=== PATIENT | female | born 1955 | race Asian ===

== ENCOUNTER 2020-01-25 04:59 | Day surgery (SDC) | payer OTHER, BC ==
[2020-01-24 17:54] VITALS: BMI 25.0
[~2020-01-25 04:59] MED LIST: ACETAMINOPHEN 325 MG TABLET (FP) PO PRN; EPINEPHrine/PF 1 MG/1 ML (1:1,000) AMPULE SQ ONE
[2020-01-25] MEDS ORDERED: CHONDROITIN SU A/HYALUR SOD 1 KIT ONE (07:11)
[2020-01-25] MEDS ORDERED: TETRACAINE 0.5% OPHTH SOLN 2 ML BOTTLE ONE (07:25)
[2020-01-25] MEDS ORDERED: BSS (NA/CA/MG/K) BALANCED SALT SOLUTION OPHTH SOLN 15 ML BOTTLE ONE (07:25)
[2020-01-25] MEDS ORDERED: POVIDONE-IODINE 5% OPHTHALMIC PREP 30 ML SOLUTION ONE (07:25)
[2020-01-25] MEDS ORDERED: LIDOCAINE HCL/PF 1% SDV 5ML VIAL ONE (07:25)
[2020-01-25] MEDS ORDERED: EPINEPHrine/PF 1 MG/1 ML (1:1,000) AMPULE ONE (07:25)
[2020-01-25] MEDS ORDERED: TRYPAN BLUE 0.5 ML DISP.SYRIN ONE (07:28)
[2020-01-25] MEDS: KETOROLAC TROMETHAMINE 0.5% EYE DROP 1 DROP DROPS OP SCH ×3 (07:30→07:50)
[2020-01-25] MEDS: OFLOXACIN 0.3% OPHTHALMIC SOLUTION 5 ML BOTTLE OP SCH ×3 (07:30→07:50)
[2020-01-25] MEDS: TROPICAMIDE 1% OPHTH SOLN 15 ML BOTTLE OP SCH ×3 (07:30→07:50)
[2020-01-25] MEDS: CYCLOPENTOLATE HCL 1% OPHTH SOLN 2 ML BOTTLE OP SCH ×3 (07:30→07:50)
[2020-01-25] MEDS: PHENYLEPHRINE 2.5% OPHTH SOLN 15 ML BOTTLE OP SCH ×2 (07:40→07:50)
[2020-01-25] MEDS ORDERED: TROPICAMIDE 1% OPHTH SOLN 15 ML BOTTLE ONE ×2 (07:44→08:05)
[2020-01-25] MEDS ORDERED: KETOROLAC TROMETHAMINE 0.5% EYE DROP 1 DROP DROPS ONE (07:44)
[2020-01-25] MEDS ORDERED: OFLOXACIN 0.3% OPHTHALMIC SOLUTION 5 ML BOTTLE ONE (07:44)
[2020-01-25] MEDS ORDERED: CYCLOPENTOLATE HCL 1% OPHTH SOLN 2 ML BOTTLE ONE (07:45)
[2020-01-25] MEDS ORDERED: TETRACAINE 0.5% OPHTH SOLN 2 ML BOTTLE OS ONE (09:17)
[2020-01-25] MEDS ORDERED: POVIDONE-IODINE 5% OPHTHALMIC PREP 30 ML SOLUTION OS ONE (09:19)
[2020-01-25] MEDS ORDERED: CHONDROITIN SU A/HYALUR SOD 1 KIT IO ONE (09:25)
[2020-01-25] MEDS ORDERED: BSS (NA/CA/MG/K) BALANCED SALT SOLUTION OPHTH SOLN 15 ML BOTTLE OS ONE (09:25)
[2020-01-25] MEDS ORDERED: LIDOCAINE HCL 1% PRESERVATIVE FREE - 30ML VIAL IO ONE (09:25)
[2020-01-25] MEDS ORDERED: TRYPAN BLUE 0.5 ML DISP.SYRIN IO ONE (09:27)
[2020-01-25] MEDS ORDERED: EPINEPHrine/PF 1 MG/1 ML (1:1,000) AMPULE SQ ONE (09:36)
[2020-01-25] MEDS ORDERED: MIDAZOLAM HCL 2 MG/2 ML SINGLE DOSE VIAL ONE (09:54)
[2020-01-25 12:08] VITALS: BP 150/70; PULSE 70; TEMP 97.8
--- NOTE | 2020-01-25 19:32 | SPEC ---
DATE OF OPERATION: 01/25/2020 OPERATION: Phacoemulsification of left cataract, capsular staining with Trypan blue and posterior chamber intraocular lens implantation, lens used [id number], 21.0 Diopter power, Serial No. [id number]. PREOPERATIVE DIAGNOSIS: Cataract, left eye. POSTOPERATIVE DIAGNOSIS: Cataract, left eye. SURGEON: Cameron Bruno M.D. ANESTHESIA: Topical MAC. COMPLICATIONS: None. PROCEDURE: The patient was brought to the operating room and correctly identified along with the operative site as well as correct intraocular lens estrella. The patient was then prepped and draped in the usual sterile fashion including 5% Betadine solution in the conjunctival sac and an eyelid drape. An eyelid speculum was then placed into the operative eye. The eye was inspected and a poor red reflex was noted. A paracentesis port was created and 0.5 mL of intracameral preservative-free lidocaine 1% was given. Beneath an air bubble, the capsule was then stained with Trypan blue. The Trypan blue was then irrigated from the eye with balanced salt solution (BBS). Viscoelastic was injected to inflate the anterior chamber. A temporal clear corneal wound was created. A continuous circular capsulorrhexis was performed. The nucleus was then hydro-dissected and hydro-delineated was BSS and removed with phacoemulsification via [id number] approach. The remaining cortical material was irrigated and aspirated from the eye. Viscoelastic was injected in the anterior chamber to inflate the capsular bag. The intraocular lens was then injected into the bag. The Viscoelastic was irrigated and aspirated from the eye. All wounds were tested and found to be watertight. No suture was placed. The intraocular lens was noted to be well centered and covered by the anterior capsular border. Topical Vancomycin was given. The eye was patched and shielded. The patient was discharged from the operating room in stable condition. Patricia [id number]
== END 2020-01-25 11:30 | disposition home or self-care (01) ==
LOC: JASU-SURG 04:59
PROVIDERS: ATTEND Ophthalmology
PROC: 08RK3JZ Replacement of Left Lens with Synthetic Substitute, Percutaneous Approach (ICD-10-PCS; principal; 2020-01-25 09:00)
DX: H26.9 Unspecified cataract (principal)
CPT/HCPCS: 82962

== ENCOUNTER 2022-02-05 06:01 | Day surgery (SDC) | payer OTHER, BC ==
[2022-02-04 11:56] VITALS: BMI 27.1
[~2022-02-05 06:01] MED LIST changes: -EPINEPHrine/PF 1 MG/1 ML (1:1,000) AMPULE SQ ONE
[2022-02-05 06:38] VITALS: RESP 16
[2022-02-05] MEDS: CYCLOPENTOLATE HCL 1% OPHTH SOLN 2 ML BOTTLE OP SCH ×3 (06:45→07:13)
[2022-02-05] MEDS: KETOROLAC TROMETHAMINE 0.5% EYE DROP 1 DROP DROPS OP SCH ×3 (06:45→07:28)
[2022-02-05] MEDS: TROPICAMIDE 1% OPHTH SOLN 15 ML BOTTLE OP SCH ×3 (06:45→07:28)
[2022-02-05] MEDS: OFLOXACIN 0.3% OPHTHALMIC SOLUTION 5 ML BOTTLE OP SCH ×2 (06:45→06:52)
[2022-02-05] MEDS: PHENYLEPHRINE 2.5% OPHTH SOLN 15 ML BOTTLE OP SCH ×3 (06:45→07:27)
[2022-02-05] MEDS ORDERED: EPINEPHrine/PF 1 MG/1 ML (1:1,000) AMPULE ONE (07:19)
[2022-02-05] MEDS ORDERED: TETRACAINE 0.5% OPHTH SOLN 2 ML BOTTLE ONE (07:19)
[2022-02-05] MEDS ORDERED: VANCOMYCIN 500 MG VIAL (RESTRICTED TO ID ONLY) ONE (07:19)
[2022-02-05] MEDS ORDERED: POVIDONE-IODINE 5% OPHTHALMIC PREP 30 ML SOLUTION ONE (07:20)
[2022-02-05] MEDS ORDERED: TRYPAN BLUE 0.5 ML DISP.SYRIN ONE (07:20)
[2022-02-05] MEDS ORDERED: MIDAZOLAM HCL 2 MG/2 ML SINGLE DOSE VIAL ONE (08:07)
[2022-02-05] MEDS ORDERED: TETRACAINE 0.5% OPHTH SOLN 2 ML BOTTLE OD ONE (08:08)
[2022-02-05] MEDS ORDERED: POVIDONE-IODINE 5% OPHTHALMIC PREP 30 ML SOLUTION OD ONE (08:10)
[2022-02-05] MEDS ORDERED: BSS (NA/CA/MG/K) BALANCED SALT SOLUTION OPHTH SOLN 15 ML BOTTLE IO ONE (08:17)
[2022-02-05] MEDS ORDERED: LIDOCAINE HCL 1% PRESERVATIVE FREE - 30ML VIAL IO ONE (08:18)
[2022-02-05] MEDS ORDERED: CHONDROITIN SU A/HYALUR SOD 1 KIT IO ONE (08:19)
[2022-02-05] MEDS ORDERED: EPINEPHrine/PF 1 MG/1 ML (1:1,000) AMPULE SQ ONE (08:23)
[2022-02-05 09:36] VITALS: BP 140/63; PULSE 73; TEMP 97
== END 2022-02-05 09:38 | disposition home or self-care (01) ==
LOC: JASU-SURG 06:01
PROVIDERS: ATTEND Ophthalmology
PROC: 08RJ3JZ Replacement of Right Lens with Synthetic Substitute, Percutaneous Approach (ICD-10-PCS; principal; 2022-02-05 08:21)
DX: H26.9 Unspecified cataract (principal); E11.39 Type 2 diabetes mellitus with other diabetic ophthalmic complication
CPT/HCPCS: 66984; V2632; 82962